=== PATIENT | female | born 1950 | race African-American/Black ===

== ENCOUNTER 2024-04-28 10:05 | Emergency (ER) | payer MEDICARE, OTHER ==
[~2024-04-28] VITALS: Ht 167.6 cm; Wt 59.0 kg
[2024-04-28] MEDS ORDERED: albuterol (10:08)
[2024-04-28 10:32] LABS: BASOPHILS % 0.5 % (0.0-2.0); HEMOGLOBIN. 12.5 g/dL (12.0-16.0); LYMPHOCYTES % 8.7 % (20.0-50.0); MEAN CORPUSCULAR HEMOGLOBIN 29.1 pg (28.0-32.0); MEAN CORPUSCULAR HGB CONC 32.9 g/dL (31.0-37.0); MEAN CORPUSCULAR VOLUME 88.4 fL (81.0-99.0); MEAN PLATELET VOLUME 7.1 fl (7.4-10.4); MONOCYTES % 2.9 % (2.0-8.0); NEUTROPHILS % 87.9 % (40.0-76.0); PLATELET 292 x1000/uL (130-400); RED BLOOD CELL COUNT 4.31 mill/uL (4.2-5.4); RED CELL DISTRIBUTION WIDTH 14.7 % (11.6-14.6); WHITE BLOOD COUNT 11.7 x1000/uL (4.5-11.0)
[2024-04-28] MEDS: ALBUTEROL (0.083%) 2.5MG/3ML NEB HHN STA (10:36)
[2024-04-28] MEDS: IPRATROPIUM BROMIDE (0.02%) 0.5MG/2.5ML NEB HHN STA (10:36)
[2024-04-28 10:40] VITALS: PULSE 127; RESP 22; O2SAT 99
[2024-04-28 10:42] LABS: CHLORIDE 105 mEq/L (98-107); POTASSIUM 4.3 mEq/L (3.5-5.1); SODIUM 139 mEq/L (136-145)
[2024-04-28 10:43] LABS: CARBON DIOXIDE 26 mEq/L (21-32)
[2024-04-28 10:44] LABS: CALCIUM 9.7 mg/dL (8.7-10.4)
[2024-04-28 10:48] LABS: CREATININE 0.8 mg/dL (0.6-1.0); GLUCOSE 144 mg/dL (70-105); UREA NITROGEN BLOOD 15 mg/dL (9-23)
[2024-04-28 10:51] LABS: TROPONIN I HIGH SENSITIVITY < 4 ng/L (3.0-34)
[2024-04-28] MEDS: MAGNESIUM 2 G PREMIX 50 ML IV STA (10:52)
[2024-04-28] MEDS: METHYLPREDNISOLONE SOD SUCC 125MG/2ML (ACT-O-VIAL) IV STA (10:52)
[2024-04-28] MEDS ORDERED: ALBUTEROL (0.083%) 2.5MG/3ML NEB HHN STA (11:35)
[2024-04-28] MEDS ORDERED: IPRATROPIUM BROMIDE (0.02%) 0.5MG/2.5ML NEB HHN STA (11:35)
[2024-04-28] MEDS: SODIUM CHLORIDE 0.9% 500 ML IV ONE (14:16)
[2024-04-28] MEDS: FAMOTIDINE 20MG/2ML VIAL IV ONE (15:47)
[2024-04-28 15:53] VITALS: BP 121/70; PULSE 88; RESP 19; TEMP 98.4
== END 2024-04-28 16:00 | disposition short-term general hospital (02) ==
LOC: ER 10:05
DX: J44.1 Chronic obstructive pulmonary disease with (acute) exacerbation (principal); I10 Essential (primary) hypertension; Z88.0 Allergy status to penicillin
CPT/HCPCS: 80048; 83880; 85025; 84484; 36415; 71045; 93005; 94644; 96361; 96365; 96366; 96375; 99285; J3490; J3475; J2930; J7040